=== PATIENT | female | born 1945 | race Caucasian/White ===

== ENCOUNTER → 2016-09-25 | Outpatient (CLI) | payer BC | END | disposition home or self-care (01) | DX: G20 Parkinson's disease (principal); R13.10 Dysphagia, unspecified; R42 Dizziness and giddiness; F41.9 Anxiety disorder, unspecified | CPT/HCPCS: 92611 GN ==

== ENCOUNTER 2016-11-03 19:55 | Inpatient (IN) | payer OTHER, MEDICARE ==
[~2016-11-03] VITALS: Ht 165.1 cm; Wt 78.4 kg
[2016-11-03 21:18] LABS: EOSINOPHIL (%) 0.8 % (0-5); EOSINOPHIL COUNT 0.1 K/uL (0-0.3); IMMATURE GRANULOCYTE (%) 0.4 % (0.0-0.7); INSTRUMENT ABS NEUTROPHIL CT 6.8 K/uL; LYMPHOCYTE COUNT 1.8 K/uL (1.0-2.8); MCH 30.4 PG (29.0-34.0); MCHC 36.8 G/DL (30.0-36.0); MCV 82.8 FL (83-99); MEAN PLAT.VOLUME 8.4 uM^3 (9.5-12.4); MONOCYTE (%) 15.8 % (3-12); MONOCYTE COUNT 1.6 K/uL (0-0.8); NEUTROPHIL (%) 65.3 % (45-76); NEUTROPHIL COUNT 6.8 K/uL (1.8-6.4); PLATELET COUNT 473 K/uL (156-360); RBC DIS.WIDTH-CV 12.4 % (11.8-14.6); RBC DIS.WIDTH-SD 37.6 % (39-53); RED BLOOD COUNT 4.47 M/uL (3.80-5.20); WHITE BLOOD COUNT 10.3 K/uL (4.1-10.2)
[2016-11-03 21:29] LABS: CHLORIDE 83 mEq/L (99-109); POTASSIUM 3.4 mEq/L (3.7-5.4)
[2016-11-03 21:32] LABS: ANION GAP 10 MEQ/L (2-14)
[2016-11-03 21:34] LABS: GFR ESTIMATE (CALCULATED) > 59 mL/min/
[2016-11-03 21:35] LABS: UREA NITROGEN (BUN) 11 mg/dL (9-23)
[2016-11-03 21:44] LABS: GLUCOSE 96 mg/dL (70-99)
[2016-11-03 21:51] LABS: ADD MIUA? YES; BILIRUBIN NEGATIVE; BLOOD SMALL; COLOR STRAW ((YELLOW)); GLUCOSE (STRIP) NEGATIVE; KETONES NEGATIVE; LEUKOCYTES NEGATIVE; NITRITE NEGATIVE; PROTEIN (STRIP) NEGATIVE; SPECIFIC GRAVITY 1.004 (1.000-1.030); UROBILINOGEN 0.2 MG/DL (0.2-1.0)
[2016-11-03 21:56] LABS: SODIUM 115 mEq/L (136-147)
[2016-11-03 22:01] LABS: BACTERIA RARE /HPF; EPITHELIAL CELLS NONE SEEN /HPF; MUCUS TRACE /LPF; RED BLOOD CELLS 0-5 /HPF (0-5); UCUL ADDED? NO; WHITE BLOOD CELLS 0-5 /HPF (0-5)
[2016-11-03 22:34] LABS: UR CREATININE CONCENTRATION 55.9 MG/DL
[2016-11-04 00:29] VITALS: BP 142/77
[2016-11-04 04:00] VITALS: BP 126/62
[2016-11-04] MEDS ORDERED: AVALIDE 300/1 TABLET PO (06:35)
[2016-11-04] MEDS ORDERED: BYSTOLIC10 MG PO (06:35)
[2016-11-04] MEDS ORDERED: CRESTOR5 MG PO (06:36)
[2016-11-04] MEDS ORDERED: SERTRALINE HCL50 MG PO (06:36)
[2016-11-04] MEDS ORDERED: ATIVAN0.5 MG PO (06:37)
[2016-11-04] MEDS ORDERED: LO-DOSE ASPIRIN81 M2 PO (06:38)
[2016-11-04] MEDS ORDERED: ZYRTEC5 MG PO (06:38)
[2016-11-04] MEDS ORDERED: CALCIUM 500 +1 EACH PO (06:39)
[2016-11-04] MEDS ORDERED: VITAMIN E400 UNIT PO (06:39)
[2016-11-04 06:41] LABS: HEMATOCRIT 37.4 % (36.0-46.0); MCH 30.1 PG (29.0-34.0); MCHC 36.1 G/DL (30.0-36.0); MCV 83.3 FL (83-99); MEAN PLAT.VOLUME 8.4 uM^3 (9.5-12.4); PLATELET COUNT 457 K/uL (156-360); RBC DIS.WIDTH-CV 12.5 % (11.8-14.6); RED BLOOD COUNT 4.49 M/uL (3.80-5.20); WHITE BLOOD COUNT 8.6 K/uL (4.1-10.2)
[2016-11-04 07:07] LABS: ALKALINE PHOSPHATASE 113 IU/L (3-129); ANION GAP 9 MEQ/L (2-14); CHLORIDE 84 MEQ/L (99-109); GFR ESTIMATE (CALCULATED) > 59 mL/min/; GLUCOSE 94 mg/dL (70-99); POTASSIUM 3.5 MEQ/L (3.7-5.4); SAMPLE HEMOLYSIS CHECK 0; SAMPLE ICTERIC CHECK 0; SAMPLE LIPEMIA CHECK 0; UREA NITROGEN (BUN) 9 mg/dL (9-23)
[2016-11-04 07:10] LABS: SODIUM 118 MEQ/L (136-147); TOTAL BILIRUBIN 0.5 MG/DL (0.0-1.0)
[2016-11-04 08:10] VITALS: BP 126/67
[2016-11-04 14:30] LABS: ANION GAP 9 MEQ/L (2-14); CHLORIDE 91 MEQ/L (99-109); POTASSIUM 3.3 MEQ/L (3.7-5.4); SAMPLE HEMOLYSIS CHECK 0; SAMPLE ICTERIC CHECK 0; SAMPLE LIPEMIA CHECK 0; SODIUM 123 MEQ/L (136-147)
[2016-11-04 14:36] LABS: GFR ESTIMATE (CALCULATED) > 59 mL/min/; GLUCOSE 105 mg/dL (70-99); UREA NITROGEN (BUN) 10 mg/dL (9-23)
[2016-11-04 16:13] VITALS: BP 132/64
[2016-11-04 16:52] LABS: ANION GAP 9 MEQ/L (2-14); CHLORIDE 92 MEQ/L (99-109); GFR ESTIMATE (CALCULATED) > 59 mL/min/; GLUCOSE 125 mg/dL (70-99); POTASSIUM 3.3 MEQ/L (3.7-5.4); SAMPLE HEMOLYSIS CHECK 0; SAMPLE ICTERIC CHECK 0; SAMPLE LIPEMIA CHECK 0; SODIUM 124 MEQ/L (136-147); UREA NITROGEN (BUN) 12 mg/dL (9-23)
[2016-11-04 19:49] VITALS: BP 132/63
[2016-11-04 20:44] LABS: ANION GAP 10 MEQ/L (2-14); CHLORIDE 94 MEQ/L (99-109); GFR ESTIMATE (CALCULATED) > 59 mL/min/; GLUCOSE 115 mg/dL (70-99); POTASSIUM 3.7 MEQ/L (3.7-5.4); SAMPLE HEMOLYSIS CHECK 0; SAMPLE ICTERIC CHECK 0; SAMPLE LIPEMIA CHECK 0; SODIUM 125 MEQ/L (136-147); UREA NITROGEN (BUN) 14 mg/dL (9-23)
[2016-11-04 23:41] VITALS: BP 107/56
[2016-11-05 03:44] VITALS: BP 156/67
[2016-11-05 07:37] VITALS: BP 140/82
[2016-11-05 08:21] LABS: BASOPHIL COUNT 0.1 K/uL (0-0.1); EOSINOPHIL (%) 1.4 % (0-5); EOSINOPHIL COUNT 0.1 K/uL (0-0.3); HEMATOCRIT 34.5 % (36.0-46.0); IMMATURE GRANULOCYTE (%) 0.5 % (0.0-0.7); INSTRUMENT ABS NEUTROPHIL CT 6.2 K/uL; LYMPHOCYTE COUNT 1.6 K/uL (1.0-2.8); MCH 31.2 PG (29.0-34.0); MCHC 35.9 G/DL (30.0-36.0); MCV 86.7 FL (83-99); MEAN PLAT.VOLUME 8.8 uM^3 (9.5-12.4); MONOCYTE (%) 9.7 % (3-12); MONOCYTE COUNT 0.9 K/uL (0-0.8); NEUTROPHIL (%) 69.9 % (45-76); NEUTROPHIL COUNT 6.2 K/uL (1.8-6.4); PLATELET COUNT 476 K/uL (156-360); RBC DIS.WIDTH-SD 41.3 % (39-53); RED BLOOD COUNT 3.98 M/uL (3.80-5.20); WHITE BLOOD COUNT 8.9 K/uL (4.1-10.2)
[2016-11-05 08:39] LABS: ALKALINE PHOSPHATASE 105 IU/L (3-129); ANION GAP 6 MEQ/L (2-14); CHLORIDE 94 MEQ/L (99-109); GFR ESTIMATE (CALCULATED) > 59 mL/min/; GLUCOSE 89 mg/dL (70-99); POTASSIUM 4.2 MEQ/L (3.7-5.4); SAMPLE HEMOLYSIS CHECK 0; SAMPLE ICTERIC CHECK 0; SAMPLE LIPEMIA CHECK 0; SODIUM 125 MEQ/L (136-147); TOTAL BILIRUBIN 0.3 MG/DL (0.0-1.0); UREA NITROGEN (BUN) 15 mg/dL (9-23)
[2016-11-05 09:05] LABS: ANION GAP 6 MEQ/L (2-14); CHLORIDE 94 MEQ/L (99-109); GFR ESTIMATE (CALCULATED) > 59 mL/min/; GLUCOSE 89 mg/dL (70-99); SAMPLE HEMOLYSIS CHECK 0; SAMPLE ICTERIC CHECK 0; SAMPLE LIPEMIA CHECK 0; SODIUM 124 MEQ/L (136-147); UREA NITROGEN (BUN) 15 mg/dL (9-23); URIC ACID 2.5 mg/dL (3.1-9.2)
[2016-11-05 10:35] LABS: HPCA INDEX 0.07
[2016-11-05 11:28] VITALS: BP 141/67
[2016-11-05] MEDS ORDERED: SINEMET 25-1001 EACH PO ×3 (12:30→12:31)
[2016-11-05] MEDS ORDERED: EXTRA STRENGTH500 M1 PO (12:32)
[2016-11-05 17:01] LABS: ANION GAP 6 MEQ/L (2-14); CHLORIDE 95 MEQ/L (99-109); GFR ESTIMATE (CALCULATED) > 59 mL/min/; GLUCOSE 107 mg/dL (70-99); POTASSIUM 4.2 MEQ/L (3.7-5.4); SAMPLE HEMOLYSIS CHECK 0; SAMPLE ICTERIC CHECK 0; SAMPLE LIPEMIA CHECK 0; SODIUM 126 MEQ/L (136-147); UREA NITROGEN (BUN) 12 mg/dL (9-23)
[2016-11-05 19:44] VITALS: BP 140/65
[2016-11-06] VITALS (7 sets, daily range): BP systolic 140–188; BP diastolic 66–85
[2016-11-06 07:08] LABS: ANION GAP 8 MEQ/L (2-14); CHLORIDE 97 MEQ/L (99-109); GFR ESTIMATE (CALCULATED) > 59 mL/min/; GLUCOSE 90 mg/dL (70-99); SAMPLE HEMOLYSIS CHECK 4; SAMPLE ICTERIC CHECK 0; SAMPLE LIPEMIA CHECK 0; SODIUM 128 MEQ/L (136-147); UREA NITROGEN (BUN) 12 mg/dL (9-23)
[2016-11-06 07:12] LABS: POTASSIUM 5.2 MEQ/L (3.7-5.4)
[2016-11-07] VITALS (7 sets, daily range): BP systolic 158–198; BP diastolic 78–96
[2016-11-07 06:27] LABS: HEMATOCRIT 32.6 % (36.0-46.0); MCH 30.9 PG (29.0-34.0); MCHC 35.6 G/DL (30.0-36.0); MCV 86.9 FL (83-99); MEAN PLAT.VOLUME 8.2 uM^3 (9.5-12.4); PLATELET COUNT 395 K/uL (156-360); RBC DIS.WIDTH-CV 13.2 % (11.8-14.6); RBC DIS.WIDTH-SD 41.5 % (39-53); RED BLOOD COUNT 3.75 M/uL (3.80-5.20); WHITE BLOOD COUNT 5.8 K/uL (4.1-10.2)
[2016-11-07 06:51] LABS: ALKALINE PHOSPHATASE 82 IU/L (3-129); ANION GAP 7 MEQ/L (2-14); CHLORIDE 101 MEQ/L (99-109); GFR ESTIMATE (CALCULATED) > 59 mL/min/; GLUCOSE 86 mg/dL (70-99); GLUCOSE 88 mg/dL (70-99); SAMPLE HEMOLYSIS CHECK 0; SAMPLE ICTERIC CHECK 0; SAMPLE LIPEMIA CHECK 0; SODIUM 130 MEQ/L (136-147); SODIUM 131 MEQ/L (136-147); UREA NITROGEN (BUN) 9 mg/dL (9-23)
[2016-11-07 06:56] LABS: POTASSIUM 3.7 MEQ/L (3.7-5.4); POTASSIUM 3.9 MEQ/L (3.7-5.4); TOTAL BILIRUBIN 0.2 MG/DL (0.0-1.0)
[2016-11-08 04:43] VITALS: BP 176/81
[2016-11-08 10:58] VITALS: BP 179/81
[2016-11-08] MEDS ORDERED: BYSTOLIC10 MG PO (11:06)
[2016-11-08] MEDS ORDERED: IRBESARTAN300 MG PO (11:06)
[2016-11-08] MEDS ORDERED: PANTOPRAZOLE SO40 MG PO (11:06)
== END 2016-11-08 11:51 | disposition home or self-care (01) | DRG 641 ==
LOC: EME 19:55 → 3EAST 22:53 → EDOF 22:53 → 3EAST 11-04 00:17
PROVIDERS: Emergency Medicine; Internal Medicine; Internal Medicine Nephrology
DX: E86.0 Dehydration (principal); E87.1 Hypo-osmolality and hyponatremia; I10 Essential (primary) hypertension; G20 Parkinson's disease; T50.2X5A Adverse effect of carbonic-anhydrase inhibitors, benzothiadiazides and other diuretics, initial encounter; D71 Functional disorders of polymorphonuclear neutrophils; E87.6 Hypokalemia; E78.5 Hyperlipidemia, unspecified; K21.9 Gastro-esophageal reflux disease without esophagitis; Z79.82 Long term (current) use of aspirin; Z87.891 Personal history of nicotine dependence; Z79.899 Other long term (current) drug therapy; Z82.49 Family history of ischemic heart disease and other diseases of the circulatory system
CPT/HCPCS: 71010; 71260; 76770; 80048; 80048 91; 80053; 80400; 81003; 82533 91; 82570; 83935; 84100; 84300; 84443; 84550; 85025; 85025 91; 85027; 86803; 94640; 94640 76; 99202; 99281; 99285; J0360; J0456; J0696; J0834; J1650; J7030; J7050